=== PATIENT | male | born 1955 | race Caucasian/White ===

== ENCOUNTER 2022-03-31 16:33 | Outpatient (REF) | payer MEDICAID, SELFPAY ==
[2022-03-31 20:39] LABS: HCT 42.5 % (40.0-50.0); HGB 14.6 g/dL (13.5-17.5); MCH 30.9 pg (27.0-33.0); MCHC 34.4 % (32.0-36.0); MCV 90 fL (80-95); MPV 9.4 fL (8.0-11.0); Platelet Count 298 10^3/uL (130-400); RBC 4.73 10^6/uL (4.36-5.78); RDW 12.7 % (11.8-14.1); RDW-SD 42.4 fL; WBC 7.21 10^3/uL (4.4-10.8)
[2022-03-31 20:57] LABS: ALT 36 U/L (16-63); AST 30 U/L (15-37); Albumin 4.7 g/dL (3.4-5.0); Alkaline Phosphatase 100 U/L (46-116); Anion Gap 7.1 mmol/L (3-11); BUN 17 mg/dL (7-18); Bilirubin, Total 1.1 mg/dL (0.2-1.0); CO2 29.9 mmol/L (21.0-32.0); CREATININE 1.2 mg/dL (0.70-1.30); Calcium 9.8 mg/dL (8.5-10.1); Chloride 101 mmol/L (98-107); Estimated GFR 67.53 (mL/min/1.73m2); Glucose 108 mg/dL (74-106); Potassium 3.9 mmol/L (3.5-5.1); Sodium 138 mmol/L (136-145); TSH (W/Ref FT4) 1.74 uIU/mL (0.36-3.74); Total Protein 8.7 g/dL (6.4-8.2)
[2022-03-31 21:36] LABS: Hemoglobin A1C 5.7 % (<5.7)
== END 2022-03-31 16:34 | disposition home or self-care (01) ==
LOC: NCHCN 16:33
PROVIDERS: Visit Provider Family Medicine
DX: I10 Essential (primary) hypertension (principal); R53.83 Other fatigue; R73.09 Other abnormal glucose
CPT/HCPCS: 80053; 85027; 83036; 84443

== ENCOUNTER 2023-04-20 11:57 | Outpatient (REF) | payer MEDICARE, SELFPAY ==
[2023-04-20 14:53] LABS: Hemoglobin A1C 5.6 % (<5.7)
[2023-04-20 16:29] LABS: Anion Gap 6.8 mmol/L (3-11); BUN 17 mg/dL (7-18); CO2 28.2 mmol/L (21.0-32.0); CREATININE 1.1 mg/dL (0.70-1.30); Calcium 9.5 mg/dL (8.5-10.1); Calculated LDL 83 mg/dL (<100); Chloride 105 mmol/L (98-107); Cholesterol 162 mg/dL (<200); Glucose 113 mg/dL (74-106); HDL Cholesterol 60 mg/dL (40-60); Potassium 4.1 mmol/L (3.5-5.1); Sodium 140 mmol/L (136-145); Triglyceride 95 mg/dL (<150)
== END 2023-04-20 11:58 | disposition home or self-care (01) ==
LOC: NCHCN 11:57
PROVIDERS: Visit Provider Nurse Practitioner Family
DX: I10 Essential (primary) hypertension (principal); R73.03 Prediabetes
CPT/HCPCS: 80048; 80061; 83036

== ENCOUNTER 2023-05-27 14:05 | Outpatient (REF) | payer MEDICARE, SELFPAY ==
--- NOTE | 2023-05-27 10:54 | SKI_PTH ---
PATIENT: Marcus Blair LOC: [facility]#:[id number] AGE/SX: 67/M ROOM: RE05/27/[address]: Dayna Cardenas : 1955 BED: DIS: 05/27/2023 SPEC #: [id number] RECD: 05/28/23 12:36 STATUS: BRETT REQ #: [id number] MICHAEL: 05/27/23 10:[address]: Dayna Cuellar DEPT: Surgical Specimen RECD BY: Kaitlin Clemente ENTERED: 05/28/23 12:37 SP TYPE: DUANE JUÁREZ DR: Unknown,Unknown Tissues: 1 - SKIN BIOPSY(SHAVE/PUNCH) Procedures: SKIN LEVEL 4 Comments: [id number]
== END 2023-05-27 14:06 | disposition home or self-care (01) ==
LOC: NCHCN 14:05
PROVIDERS: Visit Provider Nurse Practitioner Family
DX: L82.0 Inflamed seborrheic keratosis (principal)
CPT/HCPCS: 88305

== ENCOUNTER 2024-04-20 08:06 | Outpatient (REF) | payer MEDICARE, SELFPAY ==
[2024-04-20 22:04] LABS: Anion Gap 5.8 mmol/L (3-11); BUN 17 mg/dL (7-18); CO2 28.2 mmol/L (21.0-32.0); CREATININE 1.2 mg/dL (0.70-1.30); Calcium 9.4 mg/dL (8.5-10.1); Chloride 107 mmol/L (98-107); Glucose 98 mg/dL (74-106); Potassium 4.5 mmol/L (3.5-5.1); Sodium 141 mmol/L (136-145)
[2024-04-20 22:06] LABS: Hemoglobin A1C 5.7 % (<5.7)
== END 2024-04-20 08:07 | disposition home or self-care (01) ==
LOC: NCHCN 08:06
PROVIDERS: Visit Provider Nurse Practitioner Family
DX: R73.03 Prediabetes (principal)
CPT/HCPCS: 80048; 83036